=== PATIENT | female | born 1985 | race Caucasian/White ===

== ENCOUNTER 2024-06-03 12:03 | Emergency (ER) | payer OTHER, SELFPAY ==
[2024-06-03 12:08] VITALS: BP 127/78
[2024-06-03 12:22] LABS: % Basophils 0.9 % (0-2); % Eosinophils 2.5 % (0-6); % Immature Granulocytes 0.3 % (0-0.5); % Lymphocytes 35.2 % (20.5-51.1); % Monocytes 5.1 % (1.7-9.3); Absolute Basophils 0.1 10^3/uL (0-0.2); Absolute Eosinophils 0.2 10^3/uL (0-0.7); Absolute Lymphocytes 2.8 10^3/uL (1.2-3.4); Absolute Monocytes 0.4 10^3/uL (0.1-0.6); Absolute Neutrophils 4.4 10^3/uL (1.4-6.5); Hemoglobin 14.1 g/dL (12.0-16.0); Mean Corp Hgb Conc. 36.2 g/dL (33.0-37.0); Mean Corpuscular Hgb 31.3 pg (27.0-31.0); Mean Corpuscular Volume 86.5 fL (81.0-99.0); Mean Platelet Volume 10.9 fL (7.4-10.4); Nucleated Red Blood Cells % 0 %; Platelet Count 243 10^3/uL (130-400); Red Blood Cell Count 4.51 10^6/uL (4.20-5.40); Red Cell Dist. Width 12.2 % (11.5-14.5); White Blood Cell Count 7.9 10^3/uL (4.8-10.8)
[2024-06-03 12:40] LABS: ALT (SGPT) 13 U/L (0-35); AST (SGOT) 19 U/L (14-36); Albumin 4.6 g/dl (3.5-5.0); Alkaline Phosphatase 53 U/L (38-126); Blood Urea Nitrogen 15 mg/dl (7-17); Calcium 9.3 mg/dl (8.4-10.2); Carbon Dioxide 25 mmol/L (22-30); Chloride 106 mmol/L (98-107); Glucose 95 mg/dl (70-99); Sodium 139 mmol/L (135-145); Total Bilirubin 0.6 mg/dl (0.2-1.3); Total Protein 7.4 g/dl (6.3-8.2); eGFR > 60.00
[2024-06-03 12:46] LABS: Troponin I < 0.012 ng/ml
[2024-06-03 14:24] VITALS: BP 100/83
--- NOTE | 2024-06-03 15:04 | ED.GENMED ---
History of Present Illness
General
Chief Complaint: Chest Pain
Source: patient
Exam Limitations: none
Time Seen by Provider: 06/03/24 13:43
History of Present Illness
History of Present Illness:
Patient is a 38-year-old female who denies significant past medical history who presents to the emergency department for evaluation of left-sided chest pain. Patient reports that the pain started 2 weeks ago or over the left anterior chest.
Patient reports that it would get better with rest and worsened with movement. Patient thought that it might be musculoskeletal and therefore put off coming to the emergency department for evaluation. However, the pain has not resolved and
therefore decided to finally get it checked out today. Patient denies any radiation of the pain anywhere else, denies any pain into the right side of the chest, denies any pain into the neck, jaw, shoulders, arms, back. Patient denies any
associated shortness of breath, nausea, vomiting, diaphoresis. Patient denies any family history of early CAD or sudden cardiac . Patient reports that she is a smoker, she denies any exogenous hormone use, recent lower extremity edema, recent
prolonged periods of immobility, hemoptysis, personal or family history of VTE. Patient reports she has been taking Tylenol and ibuprofen which have relieved the pain but does not completely resolve it.
Past History
Past History
ED Past Medical History: None
ED Past Surgical History: None
Social History
Tobacco: Smoker
Alcohol: Occasional
Review of Systems
Review of Systems
All Other Systems: Not applicable
Constitutional: Reports no symptoms
EENT: Reports no symptoms
Respiratory: Reports no symptoms
Cardiac: Reports chest pain; Denies diaphoresis or palpitations
ABD/GI: Reports no symptoms
: Reports no symptoms
Musculoskeletal: Reports no symptoms
Skin: Reports no symptoms
Neurological: Reports no symptoms
Endocrine: Reports no symptoms
Hematologic/Lymphatic: Reports no symptoms
Psychiatric: Reports no symptoms
Phy Exam
General Physical Exam
General Presentation: well appearing and no apparent distress
General Skin: warm and dry
General Habitus: normal
General Mental: alert
General Hydration: appears well hydrated
ENT Exam
ENT Exam: EOMI, pharynx normal, neck supple and normocephalic
Eye Exam
Eye Exam: PERRL, cornea clear and conjunctiva normal
Cardiovascular Exam
Cardiovascular Exam: regular rate/rhythm, no edema, no murmur and normal peripheral pulses
Pulmonary Exam
Pulmonary Exam: lungs clear, no respiratory distress, no rales, no crackles, no rhonchi, no stridor, no wheezing and no cough
Gastrointestinal Exam
Gastrointestinal Exam: normal bowel sounds, non tender, soft, no organomegaly, no pulsatile mass and non distended
Neurological Exam
Neurological Exam: alert, oriented x3, no motor deficits and speech normal
Musculoskeletal Exam
Musculoskeletal Exam: full ROM, no edema and other (Tenderness to palpation over the left lateral chest wall which does reproduce the patient's pain)
Skin Exam
Skin Exam: normal color, warm/dry, no rash and no petechia
Psychiatric Exam
Psychiatric Exam: normal mood/affect
Scores
Heart Score for Chest Pain Patients
STEMI patient?: No
History: Slightly or Non-Suspicious
ECG: Normal
Age: </= 45 years
Risk Factors: 1 or 2 Risk Factors
Troponin: </= Normal Limit
Heart Score for Chest Pain Patients: 1
Heart Score Risk: 2.5% MACE over next 6 weeks
Course
Orders/Labs/Results
Orders:
Orders
06/03/24 12:05
EKG [Electrocardiogram (*1)] Urgent
Reason for Study: Chest Pain
EKG- Treatment ONCE
06/03/24 12:16
Comprehensive Metabolic Panel Urgent
Troponin I Urgent
06/03/24 12:17
Complete Blood Count/With Diff Urgent
06/03/24 14:55
CR Chest - 2 Views Urgent
Comment:
Reason For Exam: chest pain
06/03/24 17:01
D-Dimer Urgent
Abnormal Lab Results
06/03/24
12:17
MCH 31.3 H pg
(27.0-31.0)
MPV 10.9 H fL
(7.4-10.4)
06/03/24 12:17
06/03/24 12:16
Vital Signs
Initial and Last Documented VS:
Initial Vital Signs
Temp Pulse Resp BP Pulse Ox
98.2 F 77 18 127/78 100
06/03/24 12:08 06/03/24 12:08 06/03/24 12:08 06/03/24 12:08 06/03/24 12:08
Last Documented Vital Signs
Temp Pulse Resp BP Pulse Ox
98.2 F 67 16 110/62 99
06/03/24 12:08 06/03/24 18:12 06/03/24 18:12 06/03/24 18:12 06/03/24 18:12
*Critical Care Note
Total Time (30-74mins, 75-104mins- exclusive of procedures): Not Applicable
Update Note
Update Note:
Otherwise healthy 38-year-old female presents with 2 weeks of left-sided chest pain which is worse with movement and improved with rest. Patient denies associated symptoms such as shortness of breath. On arrival, patient's vital signs are stable,
she is afebrile. On exam, patient is very well-appearing, she is in no acute distress, she does have chest wall tenderness which reproduces the patient's pain. While the patient was in the emergency department she had an EKG which is nonischemic
and without evidence of dysrhythmia. Labs were obtained and are nonactionable, patient has a negative troponin and a low risk D-dimer. Chest x-ray demonstrates no acute disease process. At this time, I suspect the patient's pain is chest wall
pain/musculoskeletal pain and feel the patient is safe for discharge to home with outpatient PCP follow-up to ensure resolution of her symptoms. Patient advised she may continue to take ibuprofen and/or Tylenol for pain and use ice and heat to the
area. Patient was provided with return precautions, she expressed understanding of the plan and agreed.
ED Attending Note
-
Portions of this chart may have been created with voice recognition software.� Occasional wrong word or��sound alike� substitutions may have occurred due to the inherent limitations of voice recognition software.
Discharge Plan
Departure
Patient Disposition: Home (Routine Discharge)
Date of Disposition: 06/03/24
Time of Disposition: 17:45
Patient with high blood pressure during this ER visit?: No
Condition: Good
Covid-19: Not Applicable
Discharge Problem:
Chest pain
Instructions: Chest Pain NON-DHP Net Finisher Follow Up
Prescriptions:
No Action
ibuprofen 600 MG tablet
600 mg PO Q6HPRN PRN (Reason: pain)
gabapentin [Gabarone] 300 MG tablet
300 mg PO TID Qty: 20 1RF
Referrals:
Veronica Gamez MD [Family Provider] - Follow up in 2-3 days (Call for follow up appointment)
Activity Restrictions/Additional Instructions:
You were seen in the emergency department for evaluation of chest pain. While you were in the emergency department, you had an EKG which demonstrated no evidence of any dangerous abnormalities. You had a chest x-ray which appears normal. You had
blood work which shows no evidence of a heart attack or blood clots in your lungs. It is safe for you to be discharged to home. You may continue to take ibuprofen and/or Tylenol as needed for pain. Please follow up with your primary care provider
for further evaluation and treatment. Please return to the emergency department for worsening or severe pain, shortness of breath or difficulty breathing, persistent vomiting, fever greater than 100.4F, or for any other worsening or concerning
symptoms.
Interventions
Interventions:
*Risk Screen - Suicide Last Done: 06/03/24 12:08
*General Assessment Last Done: 06/03/24 12:08
*Neglect/Abuse Screening Last Done: 06/03/24 12:08
ED- Fall Risk Assessment Last Done: 06/03/24 14:28
*ED COVID-19 Vaccine History Last Done: 06/03/24 12:08
*Nursing Disposition Last Done: 06/03/24 18:12
ED- Cardiac Assessment Last Done: 06/03/24 14:28
Discharge Date and Time
Discharge Date/Time: 06/03/24 18:15
Print Language: DANISH
[2024-06-03 17:24] LABS: D-Dimer 0.42 ug/mlFEU (0.00-0.50)
[2024-06-03 18:12] VITALS: BP 110/62
== END 2024-06-03 18:15 | disposition home or self-care (01) ==
LOC: EMR 12:03
PROVIDERS: Emergency Medicine; Physician Assistant Medical; EMERGENCY PHYSICIAN Emergency Medicine; FAMILY PHYSICIAN Family Medicine
DX: R07.89 Other chest pain (principal); F17.200 Nicotine dependence, unspecified, uncomplicated
CPT/HCPCS: 99283; 71046; 80053; 84484; 85025; 85379; 93005

== ENCOUNTER 2025-07-31 13:03 | Emergency (ER) | payer OTHER, SELFPAY ==
[2025-07-31 13:05] VITALS: BP 134/99
--- NOTE | 2025-07-31 13:36 | ED.GENMED ---
History of Present Illness
General
Chief Complaint: Headache
Source: patient
Exam Limitations: none
Time Seen by Provider: 07/31/25 13:23
Nursing documentation reviewed up to this point in time: agreed with
History of Present Illness
History of Present Illness:
Patient to ED with sudden onset of left lateral peripheral vision loss with central blurriness. Symptoms starte while she was seated, resting. Resolved within a few minutes. Reports she developed a headache after. Currently asymptomatic. Denies
fever/chills, n/v, recent illness. No history of trauma. No prior history of same. Incident occurred just FINANCIAL MANAGEMENT CONSULTANT
Past History
Past History
ED Past Medical History: None
ED Past Surgical History: None
Social History
Tobacco: Smoker
Alcohol: Occasional
Review of Systems
Review of Systems
Allergies reviewed?: Yes
All Other Systems: ROS reviewed and negative except as documented in HPI and ROS
Constitutional: Reports no symptoms
EENT: Reports other (brief loss of left lateral peripheral vision with central vision blurriness)
Respiratory: Reports no symptoms
Cardiac: Reports no symptoms
ABD/GI: Reports no symptoms
: Reports no symptoms
Musculoskeletal: Reports no symptoms
Skin: Reports no symptoms
Neurological: Reports headache
Phy Exam
General Physical Exam
General Presentation: well appearing and no apparent distress
General age: appears stated age
General Skin: warm and dry
General Habitus: normal
General Mental: alert
ENT Exam
ENT Exam: EOMI and neck supple
Eye Exam
Eye Exam: PERRL, EOMI, conjunctiva normal, disc sharp, globe normal and visual choudhary normal
Mental
Mental Status: oriented to person, oriented to place, oriented to time and usual mental status
Cranial
Cranial Nerves: normal and no facial asymetry
EOM (CN3/4/6): intact and other (No nystagmus)
Motor
Seizure Activity: none
Gait: normal
Other Movement Disorders: none
Right upper extremity: 4
Right lower extremity: 4
Left upper extremity: 4
Left lower extremity: 4
Bilateral upper extremities: 4
Bilateral lower extremities: 4
Sensory
Sensory Exam: intact
Cerebellar
Cerebellar Function: normal Romberg test
Musculoskeletal Exam
Musculoskeletal Exam: full ROM and neuro vasc intact
Skin Exam
Skin Exam: normal color, warm/dry and no rash
Psychiatric Exam
Psychiatric Exam: normal mood/affect
Course
Orders/Labs/Results
Orders:
Orders
07/31/25 13:09
CT Head W/o Iv Contrast Urgent
Comment:
Reason For Exam: L eye blurriness, headache
07/31/25 13:35
Visual Acuity- Treatment ONCE
07/31/25 13:41
CRP [C-Reactive Protein] Urgent
Complete Blood Count/With Diff Urgent
Comprehensive Metabolic Panel Urgent
Lyme Progressive Urgent
Sed Rate [Erythrocyte Sed Rate] Urgent
07/31/25 16:28
Acetaminophen [Tylenol] 1,000 mg PO NOW STA
Abnormal Lab Results
07/31/25
13:41
WBC 11.1 H 10^3/uL
(4.8-10.8)
MCH 31.4 H pg
(27.0-31.0)
MPV 10.7 H fL
(7.4-10.4)
Absolute Neuts (auto) 7.7 H 10^3/uL
(1.4-6.5)
Chloride 108 H mmol/L
(98-107)
Creatinine 0.5 L mg/dL
(0.6-1.0)
Glucose 106 H mg/dl
(70-99)
07/31/25 13:41
07/31/25 13:41
Vital Signs
Initial and Last Documented VS:
Initial Vital Signs
Temp Pulse Resp BP Pulse Ox
98.7 F 94 18 134/99 100
07/31/25 13:05 07/31/25 13:05 07/31/25 13:05 07/31/25 13:05 07/31/25 13:05
Last Documented Vital Signs
Temp Pulse Resp BP Pulse Ox
98.7 F 88 16 138/78 99
07/31/25 13:05 07/31/25 16:00 07/31/25 16:00 07/31/25 16:00 07/31/25 16:00
*Radiology
Radiology exam reviewed: radiology read reviewed
*Pulse Oximetry
SaO2: 100
Oxygen Mode of Delivery: Room air
Patient hypoxic: no
*Critical Care Note
Total Time (30-74mins, 75-104mins- exclusive of procedures): Not Applicable
Update Note
Update Note:
Patient to ED after sudden onset of left lateral peripheral vision loss with blurrry central vision. Resolved in a few minutes but was followed by headache. AAOx3, VSS, she remains afebrile. PERRL, EOMI, optic disc sharp, no nystagmus. Cranial
nerves intact. Neuro exam unremarkable. CT head-no acute findings. Labs without concerning findings. Dr. Mondragon consulted. WIll follow up in office on Saturday. Requests patient return to ED if her symptoms return/new symptoms occur and patient
is agreeable to plan. Discussed above with patient and she is comfortable with discharge.
ED Attending Note
-
Portions of this chart may have been created with voice recognition software.� Occasional wrong word or��sound alike� substitutions may have occurred due to the inherent limitations of voice recognition software.
Discharge Plan
Departure
Patient Disposition: Home (Routine Discharge)
Date of Disposition: 07/31/25
Time of Disposition: 16:35
Patient with high blood pressure during this ER visit?: No
Condition: Good
Covid-19: Not Applicable
Discharge Problem:
Alteration in vision
Instructions: Headache, Adult (DC)
Prescriptions:
No Action
ibuprofen 600 MG tablet
600 mg PO Q6HPRN PRN (Reason: pain)
gabapentin [Gabarone] 300 MG tablet
300 mg PO TID Qty: 20 1RF
Referrals:
Luz Marina Mondragon MD [Active, Ophthalmology]
Referral Note: Call office on Saturday for appointment time
UNKNOWN - PT DOES,NOT KNOW [Family Provider]
Activity Restrictions/Additional Instructions:
Follow up with housing grant analyst on Saturday. Return to the emergency department immediately for any changes in/worsening of your symptoms.
Interventions
Interventions:
*Risk Screen - Suicide Last Done: 07/31/25 13:05
*General Assessment Last Done: 07/31/25 13:05
*Neglect/Abuse Screening Last Done: 07/31/25 13:05
*ED- Fall Risk Assessment Last Done: 07/31/25 13:44
*ED COVID-19 Vaccine History Last Done: 07/31/25 13:05
*Nursing Disposition Last Done: 07/31/25 16:41
ED- Neurological Assessment Last Done: 07/31/25 13:44
Discharge Date and Time
Discharge Date/Time: 07/31/25 16:58
Print Language: FRENCH
[2025-07-31 13:55] LABS: Hematocrit 38.9 % (37.0-47.0); Hemoglobin 13.8 g/dL (12.0-16.0); Mean Corp Hgb Conc. 35.5 g/dL (33.0-37.0); Mean Corpuscular Volume 88.6 fL (81.0-99.0); Nucleated Red Blood Cells % 0 %; Platelet Count 243 10^3/uL (130-400); Red Cell Dist. Width 11.9 % (11.5-14.5)
[2025-07-31 14:07] LABS: ALT (SGPT) 15 U/L (0-35); AST (SGOT) 17 U/L (14-36); Albumin 4.5 g/dl (3.5-5.0); Alkaline Phosphatase 42 U/L (38-126); Blood Urea Nitrogen 14 mg/dl (7-17); Calcium 9.7 mg/dl (8.4-10.2); Carbon Dioxide 24 mmol/L (22-30); Chloride 108 mmol/L (98-107); Glucose 106 mg/dl (70-99); Potassium 3.9 mmol/L (3.5-5.1); Sodium 139 mmol/L (135-145); Total Protein 7.6 g/dl (6.3-8.2); eGFR > 60.00
[2025-07-31 14:10] LABS: C-Reactive Protein < 5.00 mg/L (0.0-10.00)
[2025-07-31 16:00] VITALS: BP 138/78
[2025-07-31] MEDS: TYLENOL 1000 MG PO (16:31)
[2025-08-02 13:02] LABS: Lyme Antibody Screen, EIA Negative (Negative)
== END 2025-07-31 16:58 | disposition home or self-care (01) ==
LOC: EMR 13:03
PROVIDERS: Nurse Practitioner; EMERGENCY PHYSICIAN Emergency Medicine
DX: H53.8 Other visual disturbances (principal); F17.200 Nicotine dependence, unspecified, uncomplicated
CPT/HCPCS: 99284; 70450; 80053; 85025; 85652; 86140; 86618